=== PATIENT | male | born 1930 | race Caucasian/White ===

== ENCOUNTER 2017-04-22 04:44 | Inpatient (IN) | payer MEDICARE, OTHER, MEDICAID ==
[2017-04-22] MEDS: SOD CHLORIDE 0.9% 1,000 ML IV ×2 (06:30→10:11)
[2017-04-22 08:17] LABS: ADD MAN DIFF? NO
[2017-04-22 08:19] LABS: BASOPHIL # 0.1 10^3/ul (0.0-0.1); BASOPHILS % 0.5 % (0.0-2.0); EOSINOPHILS # 0.1 10^3/ul (0.0-0.5); EOSINOPHILS % 0.7 % (0.0-7.0); HEMATOCRIT 23.9 % (42.0-52.0); HEMOGLOBIN 7.7 g/dl (14.0-18.0); LYMPHOCYTES # 1.3 10^3/ul (0.8-2.9); LYMPHOCYTES % 11.4 % (15.0-51.0); MEAN CORPUSCULAR HEMOGLOBIN 26.6 pg (29.0-33.0); MEAN CORPUSCULAR HGB CONC 32.2 g/dl (32.0-37.0); MEAN CORPUSCULAR VOLUME 82.7 fl (82.0-101.0); MEAN PLATELET VOLUME 10.1 fl (7.4-10.4); MONOCYTE # 0.7 10^3/ul (0.3-0.9); MONOCYTES % 6.2 % (0.0-11.0); NEUTROPHIL # 9.4 10^3/ul (1.6-7.5); NEUTROPHILS % 80.5 % (39.0-77.0); PLATELET COUNT 281 10^3/UL (140-415); RED BLOOD COUNT 2.89 10^6/ul (4.70-6.10); RED CELL DISTRIBUTION WIDTH 16.2 % (11.5-14.5)
[2017-04-22 08:19] LABS: WHITE BLOOD COUNT 11.7 10^3/ul (4.8-10.8)
[2017-04-22 08:48] LABS: INR 5.07; PROTIME 48.7 Sec (11.9-14.9); PT RATIO 3.8
[2017-04-22 08:49] LABS: PARTIAL THROMBOPLASTIN TIME 60.4 Sec (25.0-35.0)
[2017-04-22 08:52] LABS: ALANINE AMINOTRANSFERASE 28 IU/L (13-69); ALBUMIN 2.2 g/dl (3.3-4.9); ALBUMIN/GLOBULIN RATIO 0.88; ALKALINE PHOSPHATASE 89 IU/L (42-121); ANION GAP 14 (8-16); ASPARTATE AMINO TRANSFERASE 23 IU/L (15-46); BLOOD UREA NITROGEN 63 mg/dl (7-20); CALCIUM 7.1 mg/dl (8.4-10.2); CARBON DIOXIDE 28 mmol/L (21-31); CHLORIDE 106 mmol/L (97-110); CREATININE 2.51 mg/dl (0.61-1.24); GLUCOSE 111 mg/dl (70-220); POTASSIUM 3.5 mmol/L (3.5-5.1); SODIUM 144 mmol/L (135-144); TOTAL PROTEIN 4.7 g/dl (6.1-8.1)
[2017-04-22 09:01] LABS: TROPONIN-I 0.035 ng/ml (0.00-0.12)
[2017-04-22] MEDS: LIDOCAINE 1% (MPF) 5 ML VIAL SC (09:30)
[2017-04-22] MEDS ORDERED: ONDANSETRON 4 MG INJ IV ×2 (10:30→11:30)
[2017-04-22] MEDS ORDERED: ACETAMINOPHEN 325 MG TAB PO ×2 (10:30→11:30)
[2017-04-22] MEDS: SOD CHLORIDE 0.9% 500 ML IV (11:20)
[2017-04-22] MEDS ORDERED: VANCOMYCIN IV PER PHARMACY XX (11:30)
[2017-04-22] MEDS ORDERED: DOCUSATE SODIUM 100 MG CAP PO (11:30)
[2017-04-22] MEDS ORDERED: MAGNESIUM HYDROXIDE 30ML CUP PO (11:30)
[2017-04-22] MEDS ORDERED: NITROGLYCERIN (SL) 0.4 MG TAB SL (11:30)
[2017-04-22] MEDS ORDERED: NACL 0.9% 3 ML SYG IV (11:30)
[2017-04-22] MEDS ORDERED: LORAZEPAM 2 MG INJ IV (11:30)
[2017-04-22] MEDS ORDERED: morphine 2 MG INJ IV (11:30)
[2017-04-22] MEDS ORDERED: NA PHOSPHATE/BIPHOS 133 ML ENEMA PR (11:30)
[2017-04-22] MEDS ORDERED: PIPER-TAZO 3.375 GM IV (PMX) 50 ML IVPB (12:00)
[2017-04-22] MEDS ORDERED: morphine LIQ (10 MG/5 ML) CUP PO (12:00)
[2017-04-22 12:39] LABS: ADD UMIC YES; UR ASCORBIC ACID NEGATIVE (NEGATIVE); UR BILIRUBIN (Dip) NEGATIVE (NEGATIVE); UR BLOOD (Dip) 1+ mg/dL (NEGATIVE); UR CLARITY CLOUDY (CLEAR); UR COLOR YELLOW (YELLOW); UR GLUCOSE (Dip) 1+ mg/dL (NEGATIVE); UR KETONES (Dip) NEGATIVE (NEGATIVE); UR LEUKOCYTE ESTERASE (Dip) NEGATIVE Leu/ul (NEGATIVE); UR NITRITE (Dip) NEGATIVE (NEGATIVE); UR RBC 14 /HPF (0-5); UR SPECIFIC GRAVITY (Dip) 1.016 (1.003-1.030); UR TOTAL PROTEIN (Dip) 3+ mg/dl (NEGATIVE); UR UROBILINOGEN (Dip) NEGATIVE (NEGATIVE); UR WBC 4 /HPF (0-5)
[2017-04-22] MEDS: FUROSEMIDE 40 MG INJ IV (13:56)
[2017-04-22] MEDS ORDERED: HYDROmorphONE 1 MG/ML SYG IV (14:30)
[2017-04-22] MEDS: PHYTONADIONE 10 MG in DEXTROSE 5% 50 ML IVPB ×2 (15:18→22:06)
[2017-04-22] MEDS: CIPROFLOXACIN 400MG/D5W 200 ML IVPB (15:53)
[2017-04-22 16:01] LABS: HEMATOCRIT 25.6 % (42.0-52.0); HEMOGLOBIN 8.4 g/dl (14.0-18.0)
[2017-04-22 16:39] LABS: FREE T4 (FREE THYROXINE) 1.45 ng/dl (0.85-1.93)
[2017-04-22] MEDS ORDERED: VANCOMYCIN 1.5 GM in DEXTROSE 5% 500 ML IVPB (17:00)
[2017-04-22] MEDS ORDERED: VANCOMYCIN 1 GM in SODIUM CHLORIDE 0.45 % 250 ML IVPB (17:00)
[2017-04-22] MEDS: BISACODYL (EC) 5 MG TAB PO (17:12)
[2017-04-22] MEDS: SOD CHLORIDE 0.9% 250 ML IV* (18:07)
[2017-04-22] MEDS: AZTREONAM 1 GM/NS (PMX) 50 ML IVPB ×2 (18:12→22:05)
[2017-04-22] MEDS ORDERED: POLYETHYLENE GLYCOL 3350 119 GM POWDER PO (18:30)
[2017-04-22] MEDS: VANCOMYCIN 1 GM (PMX) 250 ML IVPB (18:35)
[2017-04-22] MEDS: SOD CHLORIDE 0.45% 1,000 ML IV (18:36)
[2017-04-22] MEDS: MAGNESIUM CITRATE 300 ML BTL PO (18:37)
[2017-04-22] MEDS ORDERED: HEPARIN 5,000 UNIT/0.5 ML VIAL SC (21:00)
[2017-04-22 21:52] LABS: SODIUM,URINE RANDOM < 13 mmol/L (30-90)
[2017-04-22] MEDS: PEG/ELECTROLYTES 4L BTL PO (22:06)
[2017-04-22] MEDS: VANCOMYCIN 1 GM in SOD CHLORIDE 0.9% 250 ML IVPB (22:06)
[2017-04-22] MEDS: POTASSIUM CHLORIDE 20 MEQ POWDER FOR ORAL SOLN NGT (22:07)
[2017-04-22 23:43] LABS: IMMEDIATE SPIN CROSSMATCH 1 5
[2017-04-23] MEDS: SOD CHLORIDE 0.45% 1,000 ML IV ×2 (01:09→14:04)
[2017-04-23] MEDS ORDERED: FUROSEMIDE 20 MG INJ (02:29)
[2017-04-23] MEDS: FUROSEMIDE 20 MG INJ IV (03:27)
[2017-04-23 05:53] LABS: ADD MAN DIFF? NO
[2017-04-23] MEDS: PANTOPRAZOLE (EC) 40 MG TAB PO ×2 (05:58→17:16)
[2017-04-23] MEDS ORDERED: POLYETHYLENE GLYCOL 3350 119 GM POWDER PO (06:00)
[2017-04-23 06:01] LABS: ABNORMAL IP MESSAGE 1; BASOPHILS % 0.3 % (0.0-2.0); EOSINOPHILS # 0.1 10^3/ul (0.0-0.5); LYMPHOCYTES % 16.1 % (15.0-51.0); MEAN CORPUSCULAR HEMOGLOBIN 27.9 pg (29.0-33.0); MEAN CORPUSCULAR HGB CONC 33.7 g/dl (32.0-37.0); MEAN PLATELET VOLUME 10.2 fl (7.4-10.4); MONOCYTE # 0.7 10^3/ul (0.3-0.9); MONOCYTES % 12.3 % (0.0-11.0); NEUTROPHIL # 4.1 10^3/ul (1.6-7.5); NEUTROPHILS % 68.6 % (39.0-77.0); PLATELET COUNT 161 10^3/UL (140-415); POSITIVE DIFF @See below; RED BLOOD COUNT 2.29 10^6/ul (4.70-6.10); RED CELL DISTRIBUTION WIDTH 15.9 % (11.5-14.5)
[2017-04-23 06:23] LABS: HEMOGLOBIN 6.4 g/dl (14.0-18.0); INR 1.06; PROTIME 13.9 Sec (11.9-14.9); PT RATIO 1.1
[2017-04-23 06:38] LABS: ANION GAP 14 (8-16); BLOOD UREA NITROGEN 59 mg/dl (7-20); CALCIUM 6.9 mg/dl (8.4-10.2); CARBON DIOXIDE 27 mmol/L (21-31); CHLORIDE 107 mmol/L (97-110); CREATININE 2.47 mg/dl (0.61-1.24); GLUCOSE 97 mg/dl (70-220); MAGNESIUM 2.3 mg/dl (1.7-2.5); PHOSPHORUS 5.2 mg/dl (2.5-4.9); POTASSIUM 3.4 mmol/L (3.5-5.1); SODIUM 145 mmol/L (135-144)
[2017-04-23 06:56] LABS: CHOL/HDL RATIO 4.3 RATIO; HDL CHOLESTEROL 30 mg/dl (31-75); LDL CHOLESTEROL,CALCULATED 70 mg/dl; TRIGLYCERIDES 151 mg/dl (0-149)
[2017-04-23 06:56] LABS: CHOLESTEROL 130 mg/dl (100-200)
[2017-04-23] MEDS ORDERED: BISACODYL (EC) 5 MG TAB PO (08:00)
[2017-04-23 09:56] LABS: IMMEDIATE SPIN CROSSMATCH 1
[2017-04-23] MEDS: AZTREONAM 1 GM/NS (PMX) 50 ML IVPB ×2 (14:00→20:59)
[2017-04-23] MEDS: hydrALAzine 20 MG INJ IV (15:56)
[2017-04-23] MEDS ORDERED: HEPARIN (10 UNITS/ML) 5ML SYG IV (16:00)
[2017-04-23 17:19] LABS: THYROID STIMULATING HORMONE 0.815 MIU/L (0.465-4.680)
[2017-04-23 18:15] LABS: HEMATOCRIT 24.3 % (42.0-52.0); HEMOGLOBIN 8.3 g/dl (14.0-18.0)
[2017-04-24 00:51] LABS: HEMATOCRIT 21.8 % (42.0-52.0); HEMOGLOBIN 7.4 g/dl (14.0-18.0)
[2017-04-24] MEDS: SOD CHLORIDE 0.45% 1,000 ML IV (03:02)
[2017-04-24] MEDS: PANTOPRAZOLE (EC) 40 MG TAB PO ×2 (05:23→17:04)
[2017-04-24 06:55] LABS: ADD MAN DIFF? NO
[2017-04-24 06:57] LABS: BASOPHILS % 0.5 % (0.0-2.0); EOSINOPHILS # 0.4 10^3/ul (0.0-0.5); EOSINOPHILS % 6.3 % (0.0-7.0); HEMATOCRIT 23.9 % (42.0-52.0); HEMOGLOBIN 8.2 g/dl (14.0-18.0); LYMPHOCYTES # 1.3 10^3/ul (0.8-2.9); LYMPHOCYTES % 21.2 % (15.0-51.0); MEAN CORPUSCULAR HEMOGLOBIN 29.2 pg (29.0-33.0); MEAN CORPUSCULAR HGB CONC 34.3 g/dl (32.0-37.0); MEAN CORPUSCULAR VOLUME 85.1 fl (82.0-101.0); MEAN PLATELET VOLUME 10.1 fl (7.4-10.4); MONOCYTE # 0.7 10^3/ul (0.3-0.9); MONOCYTES % 11.5 % (0.0-11.0); NEUTROPHIL # 3.5 10^3/ul (1.6-7.5); NEUTROPHILS % 58.8 % (39.0-77.0); PLATELET COUNT 177 10^3/UL (140-415); RED BLOOD COUNT 2.81 10^6/ul (4.70-6.10); RED CELL DISTRIBUTION WIDTH 15.3 % (11.5-14.5)
[2017-04-24 06:57] LABS: WHITE BLOOD COUNT 5.9 10^3/ul (4.8-10.8)
[2017-04-24 07:20] LABS: ANION GAP 11 (8-16); BLOOD UREA NITROGEN 55 mg/dl (7-20); CALCIUM 6.9 mg/dl (8.4-10.2); CARBON DIOXIDE 27 mmol/L (21-31); CHLORIDE 108 mmol/L (97-110); CREATININE 2.33 mg/dl (0.61-1.24); GLUCOSE 91 mg/dl (70-220); SODIUM 143 mmol/L (135-144)
[2017-04-24 07:26] LABS: VANCOMYCIN,RANDOM 10.8 ug/ml
[2017-04-24 07:29] LABS: POTASSIUM 2.9 mmol/L (3.5-5.1)
[2017-04-24] MEDS: AZTREONAM 1 GM/NS (PMX) 50 ML IVPB (09:12)
[2017-04-24] MEDS: POTASSIUM CHLORIDE 20 MEQ POWDER FOR ORAL SOLN PO (09:12)
[2017-04-24] MEDS: hydrALAzine 20 MG INJ IV (10:29)
[2017-04-24 12:29] LABS: HEMATOCRIT 26.6 % (42.0-52.0)
[2017-04-24] MEDS: VANCOMYCIN 1.25 GM in SODIUM CHLORIDE 0.45 % 250 ML IVPB (13:55)
[2017-04-24] MEDS: AMLODIPINE 10 MG TAB PO (14:15)
[2017-04-24] MEDS: LEVOFLOXACIN 750 MG TABLET NGT (17:04)
[2017-04-24] MEDS: ATORVASTATIN 40 MG TAB PO (21:31)
[2017-04-24] MEDS: FUROSEMIDE 40 MG TAB PO (21:32)
[2017-04-24] MEDS: COLCHICINE 0.6 MG TAB PO (21:32)
[2017-04-24] MEDS: EZETIMIBE 10 MG TAB PO (21:32)
[2017-04-24] MEDS: TERAZOSIN 2 MG CAP PO (21:32)
[2017-04-25] MEDS: ALTEPLASE (CATHFLO) 2 MG INJ CATHETER (00:07)
[2017-04-25] MEDS: FLUTICASONE 0.05% 16 GM NAS SPRAY NASAL ×3 (00:07→20:56)
[2017-04-25 01:41] LABS: HEMATOCRIT 24.6 % (42.0-52.0); HEMOGLOBIN 8.2 g/dl (14.0-18.0)
[2017-04-25 02:08] LABS: TROPONIN-I 0.063 ng/ml (0.00-0.12)
[2017-04-25] MEDS ORDERED: LEVOFLOXACIN 750 MG TABLET NGT (06:00)
[2017-04-25] MEDS: PANTOPRAZOLE (EC) 40 MG TAB PO ×2 (06:01→17:17)
[2017-04-25] MEDS: FUROSEMIDE 40 MG TAB PO ×2 (06:02→17:18)
[2017-04-25] MEDS: LEVOTHYROXINE 50 MCG TAB PO (06:57)
[2017-04-25 08:20] LABS: WHITE BLOOD COUNT 6.3 10^3/ul (4.8-10.8)
[2017-04-25 08:20] LABS: ADD MAN DIFF? NO; BASOPHILS % 0.6 % (0.0-2.0); EOSINOPHILS # 0.4 10^3/ul (0.0-0.5); EOSINOPHILS % 5.9 % (0.0-7.0); HEMATOCRIT 25.3 % (42.0-52.0); HEMOGLOBIN 8.6 g/dl (14.0-18.0); LYMPHOCYTES # 1.1 10^3/ul (0.8-2.9); LYMPHOCYTES % 17.1 % (15.0-51.0); MEAN CORPUSCULAR HEMOGLOBIN 28.9 pg (29.0-33.0); MEAN CORPUSCULAR VOLUME 84.9 fl (82.0-101.0); MEAN PLATELET VOLUME 9.8 fl (7.4-10.4); MONOCYTE # 0.5 10^3/ul (0.3-0.9); MONOCYTES % 8.4 % (0.0-11.0); NEUTROPHIL # 4.2 10^3/ul (1.6-7.5); NEUTROPHILS % 66.6 % (39.0-77.0); PLATELET COUNT 192 10^3/UL (140-415); RED BLOOD COUNT 2.98 10^6/ul (4.70-6.10); RED CELL DISTRIBUTION WIDTH 15.8 % (11.5-14.5)
[2017-04-25 08:30] LABS: ANION GAP 9 (8-16); BLOOD UREA NITROGEN 51 mg/dl (7-20); CALCIUM 7.1 mg/dl (8.4-10.2); CARBON DIOXIDE 27 mmol/L (21-31); CHLORIDE 109 mmol/L (97-110); CREATININE 2.13 mg/dl (0.61-1.24); GLUCOSE 99 mg/dl (70-220); POTASSIUM 3.4 mmol/L (3.5-5.1); SODIUM 142 mmol/L (135-144)
[2017-04-25 08:37] LABS: INR 1.04; PROTIME 13.7 Sec (11.9-14.9); PT RATIO 1.1
[2017-04-25 08:40] LABS: TROPONIN-I 0.051 ng/ml (0.00-0.12)
[2017-04-25] MEDS: AMLODIPINE 10 MG TAB PO (09:00)
[2017-04-25] MEDS ORDERED: NON-FORMULARY/PATIENT OWN MED (Dexlansoprazole (Dexilant) 60 MG) PO (09:00)
[2017-04-25] MEDS: BENAZEPRIL 40 MG TAB PO (09:01)
[2017-04-25] MEDS: ISOSORBIDE MONONITRATE(SR)60 MG TAB PO (09:01)
[2017-04-25] MEDS: MEMANTINE 10 MG TAB PO (09:01)
[2017-04-25] MEDS: COLCHICINE 0.6 MG TAB PO ×3 (09:01→20:56)
[2017-04-25] MEDS: FERROUS SULFATE (EC) 325 MG TAB PO (09:01)
[2017-04-25] MEDS: CLOPIDOGREL 75 MG TAB PO (09:01)
[2017-04-25] MEDS: DUTASTERIDE 0.5 MG CAP PO (09:01)
[2017-04-25 11:53] LABS: MAGNESIUM 2.4 mg/dl (1.7-2.5)
[2017-04-25 13:44] LABS: HEMATOCRIT 26.1 % (42.0-52.0); HEMOGLOBIN 8.7 g/dl (14.0-18.0)
[2017-04-25] MEDS ORDERED: WARFARIN 5 MG TAB PO (17:00)
[2017-04-25 18:32] LABS: HEMATOCRIT 25.2 % (42.0-52.0); HEMOGLOBIN 8.4 g/dl (14.0-18.0)
[2017-04-25] MEDS: ATORVASTATIN 40 MG TAB PO (20:56)
[2017-04-25] MEDS: EZETIMIBE 10 MG TAB PO (20:56)
[2017-04-25] MEDS: TERAZOSIN 2 MG CAP PO (20:59)
[2017-04-26 00:51] LABS: HEMOGLOBIN 8.4 g/dl (14.0-18.0)
[2017-04-26] MEDS: ALBUTEROL/IPRATROPIUM (NEB) 3 ML AMP HHN (02:35)
[2017-04-26] MEDS: LORAZEPAM 0.5 MG TAB PO (02:42)
[2017-04-26] MEDS: LORAZEPAM 2 MG INJ IV (03:08)
[2017-04-26 08:54] LABS: ADD MAN DIFF? NO
[2017-04-26 08:55] LABS: BASOPHILS % 0.7 % (0.0-2.0); EOSINOPHILS # 0.4 10^3/ul (0.0-0.5); EOSINOPHILS % 5.8 % (0.0-7.0); HEMATOCRIT 23.8 % (42.0-52.0); LYMPHOCYTES # 1.3 10^3/ul (0.8-2.9); LYMPHOCYTES % 22.3 % (15.0-51.0); MEAN CORPUSCULAR HEMOGLOBIN 29.2 pg (29.0-33.0); MEAN CORPUSCULAR HGB CONC 33.6 g/dl (32.0-37.0); MEAN CORPUSCULAR VOLUME 86.9 fl (82.0-101.0); MEAN PLATELET VOLUME 9.6 fl (7.4-10.4); MONOCYTE # 0.5 10^3/ul (0.3-0.9); MONOCYTES % 8.2 % (0.0-11.0); NEUTROPHIL # 3.7 10^3/ul (1.6-7.5); NEUTROPHILS % 61.3 % (39.0-77.0); PLATELET COUNT 215 10^3/UL (140-415); RED BLOOD COUNT 2.74 10^6/ul (4.70-6.10)
[2017-04-26] MEDS: FLUTICASONE 0.05% 16 GM NAS SPRAY NASAL ×2 (09:08→20:46)
[2017-04-26] MEDS: LEVOTHYROXINE 50 MCG TAB PO (09:09)
[2017-04-26] MEDS: MEMANTINE 10 MG TAB PO (09:09)
[2017-04-26] MEDS: COLCHICINE 0.6 MG TAB PO ×3 (09:09→20:47)
[2017-04-26] MEDS: PANTOPRAZOLE (EC) 40 MG TAB PO ×2 (09:09→17:42)
[2017-04-26] MEDS: FUROSEMIDE 40 MG TAB PO ×2 (09:09→17:42)
[2017-04-26] MEDS: DUTASTERIDE 0.5 MG CAP PO (09:09)
[2017-04-26] MEDS: FERROUS SULFATE (EC) 325 MG TAB PO (09:10)
[2017-04-26] MEDS: BENAZEPRIL 40 MG TAB PO (09:10)
[2017-04-26] MEDS: ISOSORBIDE MONONITRATE(SR)60 MG TAB PO (09:10)
[2017-04-26 09:22] LABS: INR 1.08; PROTIME 14.1 Sec (11.9-14.9); PT RATIO 1.1
[2017-04-26 09:35] LABS: ANION GAP 6 (8-16); BLOOD UREA NITROGEN 47 mg/dl (7-20); CALCIUM 7.3 mg/dl (8.4-10.2); CARBON DIOXIDE 30 mmol/L (21-31); CHLORIDE 109 mmol/L (97-110); CREATININE 2.12 mg/dl (0.61-1.24); GLUCOSE 109 mg/dl (70-220); POTASSIUM 3.4 mmol/L (3.5-5.1); SODIUM 142 mmol/L (135-144)
[2017-04-26 14:42] LABS: HEMATOCRIT 24.3 % (42.0-52.0); HEMOGLOBIN 7.9 g/dl (14.0-18.0)
[2017-04-26] MEDS: LEVOFLOXACIN 750 MG TABLET NGT (17:45)
[2017-04-26] MEDS: ATORVASTATIN 40 MG TAB PO (20:47)
[2017-04-26] MEDS: EZETIMIBE 10 MG TAB PO (20:47)
[2017-04-26] MEDS: TERAZOSIN 2 MG CAP PO (20:48)
[2017-04-27] MEDS: PANTOPRAZOLE (EC) 40 MG TAB PO ×2 (06:17→17:54)
[2017-04-27] MEDS: FUROSEMIDE 40 MG TAB PO ×2 (06:18→17:54)
[2017-04-27] MEDS: LEVOTHYROXINE 50 MCG TAB PO (06:24)
[2017-04-27] MEDS: FLUTICASONE 0.05% 16 GM NAS SPRAY NASAL ×2 (08:08→21:38)
[2017-04-27] MEDS: COLCHICINE 0.6 MG TAB PO ×3 (08:09→21:37)
[2017-04-27] MEDS: DUTASTERIDE 0.5 MG CAP PO (08:09)
[2017-04-27] MEDS: MEMANTINE 10 MG TAB PO (08:09)
[2017-04-27] MEDS: FERROUS SULFATE (EC) 325 MG TAB PO (08:10)
[2017-04-27] MEDS: ISOSORBIDE MONONITRATE(SR)60 MG TAB PO (08:12)
[2017-04-27] MEDS: BENAZEPRIL 40 MG TAB PO (08:13)
[2017-04-27 09:11] LABS: ADD MAN DIFF? NO; BASOPHIL # 0.1 10^3/ul (0.0-0.1); BASOPHILS % 0.9 % (0.0-2.0); EOSINOPHILS # 0.5 10^3/ul (0.0-0.5); EOSINOPHILS % 6.4 % (0.0-7.0); HEMATOCRIT 25.7 % (42.0-52.0); HEMOGLOBIN 8.7 g/dl (14.0-18.0); LYMPHOCYTES # 1.4 10^3/ul (0.8-2.9); LYMPHOCYTES % 20.2 % (15.0-51.0); MEAN CORPUSCULAR HEMOGLOBIN 29.5 pg (29.0-33.0); MEAN CORPUSCULAR HGB CONC 33.9 g/dl (32.0-37.0); MEAN CORPUSCULAR VOLUME 87.1 fl (82.0-101.0); MEAN PLATELET VOLUME 9.5 fl (7.4-10.4); MONOCYTE # 0.6 10^3/ul (0.3-0.9); NEUTROPHIL # 4.5 10^3/ul (1.6-7.5); NEUTROPHILS % 63.2 % (39.0-77.0); PLATELET COUNT 244 10^3/UL (140-415); RED BLOOD COUNT 2.95 10^6/ul (4.70-6.10); RED CELL DISTRIBUTION WIDTH 16.1 % (11.5-14.5)
[2017-04-27 09:35] LABS: ANION GAP 9 (8-16); BLOOD UREA NITROGEN 39 mg/dl (7-20); CALCIUM 7.4 mg/dl (8.4-10.2); CARBON DIOXIDE 28 mmol/L (21-31); CHLORIDE 111 mmol/L (97-110); CREATININE 2.07 mg/dl (0.61-1.24); GLUCOSE 98 mg/dl (70-220); POTASSIUM 3.3 mmol/L (3.5-5.1); SODIUM 145 mmol/L (135-144)
[2017-04-27] MEDS: POTASSIUM CHLORIDE (SR) 20 MEQ TAB PO (13:15)
[2017-04-27 14:01] LABS: PROSTATE SPECIFIC ANTIGEN 6.8 ng/ml (0.0-4.0)
[2017-04-27] MEDS: CALCIUM CARBONATE 750 MG CHEW TAB PO (18:28)
[2017-04-27] MEDS: EZETIMIBE 10 MG TAB PO (21:37)
[2017-04-27] MEDS: ATORVASTATIN 40 MG TAB PO (21:37)
[2017-04-28] MEDS: CALCITRIOL 0.25 MCG CAP PO (00:18)
[2017-04-28] MEDS: TERAZOSIN 2 MG CAP PO ×2 (00:18→20:59)
[2017-04-28] MEDS: ALTEPLASE (CATHFLO) 2 MG INJ CATHETER ×2 (03:38→04:54)
[2017-04-28] MEDS: FUROSEMIDE 40 MG TAB PO (05:38)
[2017-04-28] MEDS: LEVOTHYROXINE 50 MCG TAB PO (05:38)
[2017-04-28] MEDS: PANTOPRAZOLE (EC) 40 MG TAB PO ×2 (05:38→17:14)
[2017-04-28 07:40] LABS: ADD MAN DIFF? NO
[2017-04-28 07:50] LABS: BASOPHIL # 0.1 10^3/ul (0.0-0.1); BASOPHILS % 1.2 % (0.0-2.0); EOSINOPHILS # 0.5 10^3/ul (0.0-0.5); EOSINOPHILS % 7.2 % (0.0-7.0); HEMATOCRIT 25.9 % (42.0-52.0); HEMOGLOBIN 8.5 g/dl (14.0-18.0); LYMPHOCYTES # 1.4 10^3/ul (0.8-2.9); LYMPHOCYTES % 19.1 % (15.0-51.0); MEAN CORPUSCULAR HGB CONC 32.8 g/dl (32.0-37.0); MEAN CORPUSCULAR VOLUME 88.4 fl (82.0-101.0); MEAN PLATELET VOLUME 9.6 fl (7.4-10.4); MONOCYTE # 0.5 10^3/ul (0.3-0.9); MONOCYTES % 6.5 % (0.0-11.0); NEUTROPHIL # 4.9 10^3/ul (1.6-7.5); NEUTROPHILS % 64.8 % (39.0-77.0); PLATELET COUNT 253 10^3/UL (140-415); RED BLOOD COUNT 2.93 10^6/ul (4.70-6.10); RED CELL DISTRIBUTION WIDTH 16.2 % (11.5-14.5)
[2017-04-28 07:50] LABS: WHITE BLOOD COUNT 7.5 10^3/ul (4.8-10.8)
[2017-04-28 08:05] LABS: ANION GAP 7 (8-16); BLOOD UREA NITROGEN 34 mg/dl (7-20); CALCIUM 7.3 mg/dl (8.4-10.2); CARBON DIOXIDE 28 mmol/L (21-31); CHLORIDE 112 mmol/L (97-110); CREATININE 2.03 mg/dl (0.61-1.24); GLUCOSE 92 mg/dl (70-220); POTASSIUM 3.3 mmol/L (3.5-5.1); SODIUM 144 mmol/L (135-144)
[2017-04-28 08:16] LABS: IRON 26 ug/dl (35-150)
[2017-04-28 08:33] LABS: % IRON SATURATION 15 % SAT (22-52); TOTAL IRON BINDING CAPACITY 168 ug/dl (241-421)
[2017-04-28] MEDS: DUTASTERIDE 0.5 MG CAP PO (08:47)
[2017-04-28] MEDS: CALCIUM CARBONATE 750 MG CHEW TAB PO ×3 (08:47→18:05)
[2017-04-28] MEDS: BENAZEPRIL 40 MG TAB PO (08:47)
[2017-04-28] MEDS: COLCHICINE 0.6 MG TAB PO ×3 (08:47→21:02)
[2017-04-28] MEDS: FERROUS SULFATE (EC) 325 MG TAB PO (08:48)
[2017-04-28] MEDS: ISOSORBIDE MONONITRATE(SR)60 MG TAB PO (08:48)
[2017-04-28] MEDS: MEMANTINE 10 MG TAB PO (08:48)
[2017-04-28] MEDS: FLUTICASONE 0.05% 16 GM NAS SPRAY NASAL ×2 (08:53→20:59)
[2017-04-28 11:41] LABS: PROSTATE SPECIFIC ANTIGEN 6.8 ng/ml (0.0-4.0)
[2017-04-28 13:29] LABS: COLLECTION PERIOD 24 hrs
[2017-04-28] MEDS: POTASSIUM CHLORIDE 20 MEQ POWDER FOR ORAL SOLN PO (17:14)
[2017-04-28] MEDS: FUROSEMIDE 20 MG INJ IV (17:15)
[2017-04-28] MEDS: LEVOFLOXACIN 750 MG TABLET NGT (17:15)
[2017-04-28 18:12] LABS: COLLECTION PERIOD 24 hrs; CREATININE CLEARANCE 17.2 mls/min (84.0-162.0); CREATININE,URINE RANDOM 106.06 mg/dl (20-370); SCRET 2.03 mg/dl (0.61-1.24); VOLUME 475 ml/24hrs; VOLUME 475 mls
[2017-04-28 18:17] LABS: 24HR URINE TOTAL PROTEIN > 600.0 mg/24hrs (42.0-225.0)
[2017-04-28] MEDS: SOD FERRIC GLUC COMPLX 125 MG in SOD CHLORIDE 0.9% 100 ML IVPB (20:59)
[2017-04-28] MEDS: EZETIMIBE 10 MG TAB PO (20:59)
[2017-04-28] MEDS: ATORVASTATIN 40 MG TAB PO (21:02)
[2017-04-29] MEDS: FUROSEMIDE 20 MG INJ IV ×5 (00:36→23:23)
[2017-04-29] MEDS: PANTOPRAZOLE (EC) 40 MG TAB PO ×2 (05:55→17:00)
[2017-04-29] MEDS: LEVOTHYROXINE 50 MCG TAB PO (05:56)
[2017-04-29 07:31] LABS: ADD MAN DIFF? NO
[2017-04-29 07:35] LABS: BASOPHIL # 0.1 10^3/ul (0.0-0.1); EOSINOPHILS # 0.6 10^3/ul (0.0-0.5); HEMATOCRIT 27.2 % (42.0-52.0); HEMOGLOBIN 8.9 g/dl (14.0-18.0); LYMPHOCYTES # 1.4 10^3/ul (0.8-2.9); LYMPHOCYTES % 15.9 % (15.0-51.0); MEAN CORPUSCULAR HEMOGLOBIN 28.9 pg (29.0-33.0); MEAN CORPUSCULAR HGB CONC 32.7 g/dl (32.0-37.0); MEAN CORPUSCULAR VOLUME 88.3 fl (82.0-101.0); MEAN PLATELET VOLUME 9.5 fl (7.4-10.4); MONOCYTE # 0.6 10^3/ul (0.3-0.9); MONOCYTES % 6.6 % (0.0-11.0); NEUTROPHIL # 6.2 10^3/ul (1.6-7.5); NEUTROPHILS % 68.9 % (39.0-77.0); PLATELET COUNT 253 10^3/UL (140-415); RED BLOOD COUNT 3.08 10^6/ul (4.70-6.10); RED CELL DISTRIBUTION WIDTH 16.5 % (11.5-14.5)
[2017-04-29 08:24] LABS: ANION GAP 6 (8-16); BLOOD UREA NITROGEN 35 mg/dl (7-20); CALCIUM 7.6 mg/dl (8.4-10.2); CARBON DIOXIDE 27 mmol/L (21-31); CHLORIDE 112 mmol/L (97-110); CREATININE 2.18 mg/dl (0.61-1.24); GLUCOSE 106 mg/dl (70-220); POTASSIUM 3.5 mmol/L (3.5-5.1); SODIUM 141 mmol/L (135-144)
[2017-04-29] MEDS: FLUTICASONE 0.05% 16 GM NAS SPRAY NASAL ×2 (09:20→21:49)
[2017-04-29] MEDS: DUTASTERIDE 0.5 MG CAP PO (09:21)
[2017-04-29] MEDS: COLCHICINE 0.6 MG TAB PO ×3 (09:21→21:49)
[2017-04-29] MEDS: ISOSORBIDE MONONITRATE(SR)60 MG TAB PO (09:21)
[2017-04-29] MEDS: BENAZEPRIL 40 MG TAB PO (09:21)
[2017-04-29] MEDS: FERROUS SULFATE (EC) 325 MG TAB PO (09:21)
[2017-04-29] MEDS: CALCIUM CARBONATE 750 MG CHEW TAB PO ×3 (09:21→17:00)
[2017-04-29] MEDS: MEMANTINE 10 MG TAB PO (09:22)
[2017-04-29] MEDS: ATORVASTATIN 40 MG TAB PO (21:47)
[2017-04-29] MEDS: EZETIMIBE 10 MG TAB PO (21:47)
[2017-04-29] MEDS: SOD FERRIC GLUC COMPLX 125 MG in SOD CHLORIDE 0.9% 100 ML IVPB (21:47)
[2017-04-29] MEDS: TAMSULOSIN (SR) 0.4 MG CAP PO (21:48)
[2017-04-29] MEDS: TERAZOSIN 2 MG CAP PO (21:49)
[2017-04-29] MEDS: LORAZEPAM 2 MG INJ IV (23:23)
[2017-04-30] MEDS: FUROSEMIDE 20 MG INJ IV ×4 (06:29→23:31)
[2017-04-30] MEDS: PANTOPRAZOLE (EC) 40 MG TAB PO ×2 (06:30→17:15)
[2017-04-30] MEDS: LEVOTHYROXINE 50 MCG TAB PO (06:30)
[2017-04-30 08:01] LABS: ANION GAP 4 (8-16); BLOOD UREA NITROGEN 32 mg/dl (7-20); CALCIUM 7.5 mg/dl (8.4-10.2); CARBON DIOXIDE 28 mmol/L (21-31); CHLORIDE 112 mmol/L (97-110); CREATININE 2.43 mg/dl (0.61-1.24); GLUCOSE 111 mg/dl (70-220); MAGNESIUM 2.1 mg/dl (1.7-2.5); PHOSPHORUS 3.9 mg/dl (2.5-4.9); POTASSIUM 3.4 mmol/L (3.5-5.1); SODIUM 141 mmol/L (135-144)
[2017-04-30] MEDS: FERROUS SULFATE (EC) 325 MG TAB PO (09:46)
[2017-04-30] MEDS: BENAZEPRIL 40 MG TAB PO (09:46)
[2017-04-30] MEDS: DUTASTERIDE 0.5 MG CAP PO (09:46)
[2017-04-30] MEDS: COLCHICINE 0.6 MG TAB PO ×3 (09:46→21:48)
[2017-04-30] MEDS: CALCIUM CARBONATE 750 MG CHEW TAB PO ×3 (09:46→17:15)
[2017-04-30] MEDS: FLUTICASONE 0.05% 16 GM NAS SPRAY NASAL ×2 (09:46→21:54)
[2017-04-30] MEDS: ASPIRIN 81 MG TAB PO (09:46)
[2017-04-30] MEDS: MEMANTINE 10 MG TAB PO (09:46)
[2017-04-30] MEDS: ISOSORBIDE MONONITRATE(SR)60 MG TAB PO (09:46)
[2017-04-30] MEDS: POTASSIUM CHLORIDE (SR) 20 MEQ TAB PO (14:12)
[2017-04-30] MEDS: TAMSULOSIN (SR) 0.4 MG CAP PO (21:48)
[2017-04-30] MEDS: SOD FERRIC GLUC COMPLX 125 MG in SOD CHLORIDE 0.9% 100 ML IVPB (21:48)
[2017-04-30] MEDS: ATORVASTATIN 40 MG TAB PO (21:48)
[2017-04-30] MEDS: EZETIMIBE 10 MG TAB PO (21:48)
[2017-04-30] MEDS: TERAZOSIN 2 MG CAP PO (21:54)
[2017-05-01] MEDS: PANTOPRAZOLE (EC) 40 MG TAB PO ×2 (06:33→18:24)
[2017-05-01] MEDS: LEVOTHYROXINE 50 MCG TAB PO (06:33)
[2017-05-01] MEDS: FUROSEMIDE 20 MG INJ IV ×3 (06:37→18:25)
[2017-05-01] MEDS: ASPIRIN 81 MG TAB PO (08:55)
[2017-05-01] MEDS: COLCHICINE 0.6 MG TAB PO ×3 (08:56→21:03)
[2017-05-01] MEDS: FLUTICASONE 0.05% 16 GM NAS SPRAY NASAL ×2 (08:56→21:16)
[2017-05-01] MEDS: MEMANTINE 10 MG TAB PO (08:57)
[2017-05-01] MEDS: FERROUS SULFATE (EC) 325 MG TAB PO (08:57)
[2017-05-01] MEDS: DUTASTERIDE 0.5 MG CAP PO (08:57)
[2017-05-01] MEDS: CALCIUM CARBONATE 750 MG CHEW TAB PO ×3 (08:58→18:28)
[2017-05-01] MEDS: BENAZEPRIL 40 MG TAB PO (09:00)
[2017-05-01] MEDS: ISOSORBIDE MONONITRATE(SR)60 MG TAB PO (09:00)
[2017-05-01 09:23] LABS: ANION GAP 7 (8-16); BLOOD UREA NITROGEN 31 mg/dl (7-20); CALCIUM 7.6 mg/dl (8.4-10.2); CARBON DIOXIDE 29 mmol/L (21-31); CHLORIDE 111 mmol/L (97-110); CREATININE 2.34 mg/dl (0.61-1.24); GLUCOSE 107 mg/dl (70-220); MAGNESIUM 1.9 mg/dl (1.7-2.5); PHOSPHORUS 3.7 mg/dl (2.5-4.9); POTASSIUM 3.2 mmol/L (3.5-5.1); SODIUM 144 mmol/L (135-144)
[2017-05-01] MEDS: POTASSIUM CHLORIDE 20 MEQ POWDER FOR ORAL SOLN PO (11:10)
[2017-05-01] MEDS: ALBUMIN HUMAN 25% 100 ML IV ×2 (12:37→18:25)
[2017-05-01] MEDS: EZETIMIBE 10 MG TAB PO (21:03)
[2017-05-01] MEDS: ATORVASTATIN 40 MG TAB PO (21:04)
[2017-05-01] MEDS: TAMSULOSIN (SR) 0.4 MG CAP PO (21:10)
[2017-05-01] MEDS: TERAZOSIN 2 MG CAP PO (21:10)
[2017-05-01] MEDS: HEPARIN 5,000 UNIT/0.5 ML VIAL SC (21:13)
[2017-05-01] MEDS: METOLAZONE 5 MG TAB PO (21:20)
[2017-05-02] MEDS: FUROSEMIDE 20 MG INJ IV ×3 (01:47→12:36)
[2017-05-02] MEDS: PANTOPRAZOLE (EC) 40 MG TAB PO ×2 (06:45→17:14)
[2017-05-02] MEDS: LEVOTHYROXINE 50 MCG TAB PO (06:46)
[2017-05-02] MEDS: FLUTICASONE 0.05% 16 GM NAS SPRAY NASAL ×2 (09:27→21:40)
[2017-05-02] MEDS: CALCIUM CARBONATE 750 MG CHEW TAB PO ×4 (09:28→21:30)
[2017-05-02] MEDS: DUTASTERIDE 0.5 MG CAP PO (09:28)
[2017-05-02] MEDS: COLCHICINE 0.6 MG TAB PO ×3 (09:28→21:30)
[2017-05-02] MEDS: ISOSORBIDE MONONITRATE(SR)60 MG TAB PO (09:28)
[2017-05-02] MEDS: FERROUS SULFATE (EC) 325 MG TAB PO (09:28)
[2017-05-02] MEDS: MEMANTINE 10 MG TAB PO (09:29)
[2017-05-02] MEDS: ASPIRIN 81 MG TAB PO (09:29)
[2017-05-02] MEDS: BENAZEPRIL 40 MG TAB PO (09:29)
[2017-05-02] MEDS: METOLAZONE 5 MG TAB PO (09:29)
[2017-05-02] MEDS: HEPARIN 5,000 UNIT/0.5 ML VIAL SC ×2 (09:30→21:33)
[2017-05-02 09:41] LABS: ANION GAP 9 (8-16); BLOOD UREA NITROGEN 29 mg/dl (7-20); CALCIUM 8.1 mg/dl (8.4-10.2); CARBON DIOXIDE 28 mmol/L (21-31); CHLORIDE 110 mmol/L (97-110); GLUCOSE 96 mg/dl (70-220); MAGNESIUM 1.9 mg/dl (1.7-2.5); POTASSIUM 3.2 mmol/L (3.5-5.1); SODIUM 144 mmol/L (135-144)
[2017-05-02] MEDS: POTASSIUM CHLORIDE (SR) 20 MEQ TAB PO (10:00)
[2017-05-02] MEDS: FUROSEMIDE 40 MG INJ IV (17:15)
[2017-05-02] MEDS ORDERED: FUROSEMIDE 20 MG INJ IV (18:00)
[2017-05-02] MEDS: ATORVASTATIN 40 MG TAB PO (21:30)
[2017-05-02] MEDS: TERAZOSIN 2 MG CAP PO (21:31)
[2017-05-02] MEDS: TAMSULOSIN (SR) 0.4 MG CAP PO (21:40)
[2017-05-02] MEDS: EZETIMIBE 10 MG TAB PO (21:40)
[2017-05-03] MEDS: FUROSEMIDE 40 MG INJ IV ×5 (00:01→23:37)
[2017-05-03] MEDS: LEVOTHYROXINE 50 MCG TAB PO (06:22)
[2017-05-03] MEDS: PANTOPRAZOLE (EC) 40 MG TAB PO ×2 (06:22→18:18)
[2017-05-03 08:34] LABS: BLOOD UREA NITROGEN 29 mg/dl (7-20); CALCIUM 7.8 mg/dl (8.4-10.2); CARBON DIOXIDE 29 mmol/L (21-31); CHLORIDE 109 mmol/L (97-110); GLUCOSE 92 mg/dl (70-220); SODIUM 143 mmol/L (135-144)
[2017-05-03 08:41] LABS: ANION GAP 8 (8-16); POTASSIUM 2.8 mmol/L (3.5-5.1)
[2017-05-03] MEDS: BENAZEPRIL 40 MG TAB PO (08:51)
[2017-05-03] MEDS: METOLAZONE 5 MG TAB PO (08:51)
[2017-05-03] MEDS: FERROUS SULFATE (EC) 325 MG TAB PO (08:51)
[2017-05-03] MEDS: FLUTICASONE 0.05% 16 GM NAS SPRAY NASAL ×2 (08:51→21:25)
[2017-05-03] MEDS: COLCHICINE 0.6 MG TAB PO ×3 (08:52→21:24)
[2017-05-03] MEDS: MEMANTINE 10 MG TAB PO (08:52)
[2017-05-03] MEDS: DUTASTERIDE 0.5 MG CAP PO (08:52)
[2017-05-03] MEDS: ASPIRIN 81 MG TAB PO (08:52)
[2017-05-03] MEDS: ISOSORBIDE MONONITRATE(SR)60 MG TAB PO (08:52)
[2017-05-03] MEDS: HEPARIN 5,000 UNIT/0.5 ML VIAL SC ×2 (08:59→21:28)
[2017-05-03] MEDS: POTASSIUM CHLORIDE 50 ML IVPB ×2 (11:02→13:19)
[2017-05-03] MEDS: POTASSIUM CHLORIDE 20 MEQ POWDER FOR ORAL SOLN PO (11:02)
[2017-05-03] MEDS: CALCIUM CARBONATE 750 MG CHEW TAB PO ×2 (13:19→18:24)
[2017-05-03] MEDS: HYDROCODONE/APAP (5/325) TAB PO (15:34)
[2017-05-03 16:34] LABS: ANION GAP 11 (8-16); BLOOD UREA NITROGEN 28 mg/dl (7-20); CALCIUM 7.4 mg/dl (8.4-10.2); CARBON DIOXIDE 28 mmol/L (21-31); CHLORIDE 109 mmol/L (97-110); CREATININE 2.34 mg/dl (0.61-1.24); GLUCOSE 122 mg/dl (70-220); MAGNESIUM 1.8 mg/dl (1.7-2.5); POTASSIUM 3.6 mmol/L (3.5-5.1); SODIUM 144 mmol/L (135-144)
[2017-05-03] MEDS: EZETIMIBE 10 MG TAB PO (21:24)
[2017-05-03] MEDS: TAMSULOSIN (SR) 0.4 MG CAP PO (21:24)
[2017-05-03] MEDS: ATORVASTATIN 40 MG TAB PO (21:24)
[2017-05-03] MEDS: TERAZOSIN 2 MG CAP PO (21:25)
[2017-05-04] MEDS: LEVOTHYROXINE 50 MCG TAB PO (05:55)
[2017-05-04] MEDS: FUROSEMIDE 40 MG INJ IV ×2 (05:55→12:48)
[2017-05-04] MEDS: PANTOPRAZOLE (EC) 40 MG TAB PO ×2 (05:55→17:14)
[2017-05-04 06:06] LABS: ANION GAP 8 (8-16); BLOOD UREA NITROGEN 29 mg/dl (7-20); CALCIUM 7.7 mg/dl (8.4-10.2); CARBON DIOXIDE 29 mmol/L (21-31); CHLORIDE 109 mmol/L (97-110); CREATININE 2.58 mg/dl (0.61-1.24); GLUCOSE 94 mg/dl (70-220); MAGNESIUM 1.8 mg/dl (1.7-2.5); SODIUM 143 mmol/L (135-144)
[2017-05-04] MEDS: POTASSIUM CHLORIDE (SR) 20 MEQ TAB PO (06:46)
[2017-05-04] MEDS: ASPIRIN 81 MG TAB PO (09:28)
[2017-05-04] MEDS: DUTASTERIDE 0.5 MG CAP PO (09:28)
[2017-05-04] MEDS: BENAZEPRIL 40 MG TAB PO (09:28)
[2017-05-04] MEDS: CALCIUM CARBONATE 750 MG CHEW TAB PO ×3 (09:28→18:55)
[2017-05-04] MEDS: FERROUS SULFATE (EC) 325 MG TAB PO (09:28)
[2017-05-04] MEDS: MEMANTINE 10 MG TAB PO (09:29)
[2017-05-04] MEDS: COLCHICINE 0.6 MG TAB PO ×3 (09:29→21:27)
[2017-05-04] MEDS: HEPARIN 5,000 UNIT/0.5 ML VIAL SC ×2 (09:32→21:42)
[2017-05-04] MEDS: FLUTICASONE 0.05% 16 GM NAS SPRAY NASAL ×2 (12:43→21:26)
[2017-05-04] MEDS: METOLAZONE 5 MG TAB PO (12:45)
[2017-05-04] MEDS: ISOSORBIDE MONONITRATE(SR)60 MG TAB PO (12:46)
[2017-05-04] MEDS: MAGNESIUM SULFATE 1 GM/D5W 100 ML IVPB (15:48)
[2017-05-04] MEDS: LIDOCAINE 1% (MPF) 5 ML VIAL SC (16:58)
[2017-05-04] MEDS: POTASSIUM CHLORIDE 20 MEQ POWDER FOR ORAL SOLN PO (17:14)
[2017-05-04] MEDS: BUMETANIDE 1 MG TAB PO (17:14)
[2017-05-04] MEDS: TERAZOSIN 2 MG CAP PO (21:00)
[2017-05-04] MEDS: ATORVASTATIN 40 MG TAB PO (21:27)
[2017-05-04] MEDS: TAMSULOSIN (SR) 0.4 MG CAP PO (21:27)
[2017-05-04] MEDS: EZETIMIBE 10 MG TAB PO (21:27)
[2017-05-05 05:25] LABS: Allen Test ACCEPTAB; Arterial Base Excess 5.3 mmol/L (-3.0-3); Arterial COHb 0.3 % (0.0-3.0); Arterial Fraction of Oxyhgb 92.4 % (93.0-99.0); Arterial HCO3 30.6 mmol/L (22.0-26.0); Arterial MetHb 0.3 % (0.0-1.5); Arterial Total Hemglobin 8.4 g/dl (12.0-18.0); Arterial pCO2 49.6 mmhg (35-45); MODE ROOM AIR; Site Right Radial
[2017-05-05 05:38] LABS: ANION GAP 8 (8-16)
[2017-05-05 05:47] LABS: MAGNESIUM 1.9 mg/dl (1.7-2.5)
[2017-05-05 05:54] LABS: BLOOD UREA NITROGEN 29 mg/dl (7-20); CALCIUM 7.3 mg/dl (8.4-10.2); CARBON DIOXIDE 28 mmol/L (21-31); CHLORIDE 107 mmol/L (97-110); CREATININE 2.53 mg/dl (0.61-1.24); GLUCOSE 102 mg/dl (70-220); POTASSIUM 3.2 mmol/L (3.5-5.1); SODIUM 140 mmol/L (135-144)
[2017-05-05] MEDS: LEVOTHYROXINE 50 MCG TAB PO (06:21)
[2017-05-05] MEDS: BUMETANIDE 1 MG TAB PO ×2 (06:21→18:00)
[2017-05-05] MEDS: PANTOPRAZOLE (EC) 40 MG TAB PO ×2 (06:21→17:27)
[2017-05-05] MEDS: ASPIRIN 81 MG TAB PO (08:51)
[2017-05-05] MEDS: FERROUS SULFATE (EC) 325 MG TAB PO (08:51)
[2017-05-05] MEDS: FLUTICASONE 0.05% 16 GM NAS SPRAY NASAL ×2 (08:51→21:18)
[2017-05-05] MEDS: CALCIUM CARBONATE 750 MG CHEW TAB PO ×3 (08:51→19:40)
[2017-05-05] MEDS: METOLAZONE 5 MG TAB PO (08:52)
[2017-05-05] MEDS: MEMANTINE 10 MG TAB PO (08:52)
[2017-05-05] MEDS: COLCHICINE 0.6 MG TAB PO ×3 (08:52→21:18)
[2017-05-05] MEDS: ISOSORBIDE MONONITRATE(SR)60 MG TAB PO (08:52)
[2017-05-05] MEDS: DUTASTERIDE 0.5 MG CAP PO (08:52)
[2017-05-05] MEDS: BENAZEPRIL 40 MG TAB PO (08:53)
[2017-05-05] MEDS: HEPARIN 5,000 UNIT/0.5 ML VIAL SC ×2 (08:54→21:28)
[2017-05-05] MEDS: POTASSIUM CHLORIDE (SR) 20 MEQ TAB PO ×2 (12:32→17:27)
[2017-05-05] MEDS: BUMETANIDE 12 MG in DEXTROSE 5% 72 ML IV (12:32)
[2017-05-05] MEDS ORDERED: BUMETANIDE 12 MG in DEXTROSE 5% 72 ML IV (21:00)
[2017-05-05] MEDS: TERAZOSIN 2 MG CAP PO (21:00)
[2017-05-05] MEDS: ATORVASTATIN 40 MG TAB PO (21:18)
[2017-05-05] MEDS: TAMSULOSIN (SR) 0.4 MG CAP PO (21:18)
[2017-05-05] MEDS: EZETIMIBE 10 MG TAB PO (21:19)
[2017-05-06] MEDS: PANTOPRAZOLE (EC) 40 MG TAB PO ×2 (05:43→17:54)
[2017-05-06 06:23] LABS: ANION GAP 9 (8-16); BLOOD UREA NITROGEN 28 mg/dl (7-20); CALCIUM 7.9 mg/dl (8.4-10.2); CARBON DIOXIDE 28 mmol/L (21-31); CHLORIDE 108 mmol/L (97-110); CREATININE 2.71 mg/dl (0.61-1.24); GLUCOSE 88 mg/dl (70-220); MAGNESIUM 1.9 mg/dl (1.7-2.5); POTASSIUM 3.3 mmol/L (3.5-5.1); SODIUM 142 mmol/L (135-144)
[2017-05-06] MEDS: LEVOTHYROXINE 50 MCG TAB PO (06:31)
[2017-05-06] MEDS: FLUTICASONE 0.05% 16 GM NAS SPRAY NASAL ×2 (08:34→20:47)
[2017-05-06] MEDS: FERROUS SULFATE (EC) 325 MG TAB PO (08:35)
[2017-05-06] MEDS: CALCIUM CARBONATE 750 MG CHEW TAB PO ×3 (08:35→17:54)
[2017-05-06] MEDS: COLCHICINE 0.6 MG TAB PO ×3 (08:35→20:48)
[2017-05-06] MEDS: ASPIRIN 81 MG TAB PO (08:35)
[2017-05-06] MEDS: DUTASTERIDE 0.5 MG CAP PO (08:35)
[2017-05-06] MEDS: ISOSORBIDE MONONITRATE(SR)60 MG TAB PO (08:35)
[2017-05-06] MEDS: MEMANTINE 10 MG TAB PO (08:35)
[2017-05-06] MEDS: BENAZEPRIL 40 MG TAB PO (08:36)
[2017-05-06] MEDS: HEPARIN 5,000 UNIT/0.5 ML VIAL SC ×2 (08:39→20:50)
[2017-05-06] MEDS: POTASSIUM CHLORIDE (SR) 20 MEQ TAB PO ×3 (10:28→17:54)
[2017-05-06] MEDS: BUMETANIDE 1 MG TAB PO ×2 (14:52→20:47)
[2017-05-06] MEDS: METOLAZONE 2.5 MG TAB PO (14:52)
[2017-05-06] MEDS ORDERED: BUMETANIDE 1 MG TAB PO (18:00)
[2017-05-06] MEDS: TAMSULOSIN (SR) 0.4 MG CAP PO (20:47)
[2017-05-06] MEDS: TERAZOSIN 2 MG CAP PO (20:47)
[2017-05-06] MEDS: EZETIMIBE 10 MG TAB PO (20:48)
[2017-05-06] MEDS: ATORVASTATIN 40 MG TAB PO (20:48)
[2017-05-07] MEDS: LEVOTHYROXINE 50 MCG TAB PO (06:14)
[2017-05-07] MEDS: PANTOPRAZOLE (EC) 40 MG TAB PO ×2 (06:14→17:44)
[2017-05-07] MEDS: BUMETANIDE 1 MG TAB PO ×2 (06:14→17:44)
[2017-05-07 06:58] LABS: ANION GAP 10 (8-16); BLOOD UREA NITROGEN 27 mg/dl (7-20); CALCIUM 7.5 mg/dl (8.4-10.2); CARBON DIOXIDE 30 mmol/L (21-31); CHLORIDE 109 mmol/L (97-110); CREATININE 2.83 mg/dl (0.61-1.24); GLUCOSE 89 mg/dl (70-220); MAGNESIUM 1.9 mg/dl (1.7-2.5); POTASSIUM 3.6 mmol/L (3.5-5.1); SODIUM 145 mmol/L (135-144)
[2017-05-07] MEDS: FLUTICASONE 0.05% 16 GM NAS SPRAY NASAL ×2 (09:39→21:32)
[2017-05-07] MEDS: DUTASTERIDE 0.5 MG CAP PO (09:39)
[2017-05-07] MEDS: CALCIUM CARBONATE 750 MG CHEW TAB PO ×3 (09:39→17:45)
[2017-05-07] MEDS: COLCHICINE 0.6 MG TAB PO ×3 (09:39→21:04)
[2017-05-07] MEDS: MEMANTINE 10 MG TAB PO (09:40)
[2017-05-07] MEDS: METOLAZONE 2.5 MG TAB PO (09:40)
[2017-05-07] MEDS: FERROUS SULFATE (EC) 325 MG TAB PO (09:40)
[2017-05-07] MEDS: ISOSORBIDE MONONITRATE(SR)60 MG TAB PO (09:40)
[2017-05-07] MEDS: BENAZEPRIL 40 MG TAB PO (09:40)
[2017-05-07] MEDS: ASPIRIN 81 MG TAB PO (09:41)
[2017-05-07] MEDS: HEPARIN 5,000 UNIT/0.5 ML VIAL SC ×2 (09:45→21:09)
[2017-05-07] MEDS: POTASSIUM CHLORIDE 20 MEQ POWDER FOR ORAL SOLN PO (12:33)
[2017-05-07] MEDS: ATORVASTATIN 40 MG TAB PO (21:03)
[2017-05-07] MEDS: TERAZOSIN 2 MG CAP PO (21:03)
[2017-05-07] MEDS: TAMSULOSIN (SR) 0.4 MG CAP PO (21:03)
[2017-05-07] MEDS: EZETIMIBE 10 MG TAB PO (21:04)
[2017-05-08] MEDS: BUMETANIDE 1 MG TAB PO ×2 (06:07→17:24)
[2017-05-08] MEDS: PANTOPRAZOLE (EC) 40 MG TAB PO ×2 (06:07→17:21)
[2017-05-08] MEDS: LEVOTHYROXINE 50 MCG TAB PO (06:07)
[2017-05-08] MEDS: METOLAZONE 2.5 MG TAB PO (08:19)
[2017-05-08] MEDS: COLCHICINE 0.6 MG TAB PO (08:19)
[2017-05-08] MEDS: CALCIUM CARBONATE 750 MG CHEW TAB PO ×3 (08:19→18:32)
[2017-05-08] MEDS: BENAZEPRIL 40 MG TAB PO (08:19)
[2017-05-08] MEDS: MEMANTINE 10 MG TAB PO (08:19)
[2017-05-08] MEDS: ASPIRIN 81 MG TAB PO (08:20)
[2017-05-08] MEDS: DUTASTERIDE 0.5 MG CAP PO (08:20)
[2017-05-08] MEDS: FERROUS SULFATE (EC) 325 MG TAB PO (08:20)
[2017-05-08] MEDS: FLUTICASONE 0.05% 16 GM NAS SPRAY NASAL ×2 (08:21→21:10)
[2017-05-08] MEDS: HEPARIN 5,000 UNIT/0.5 ML VIAL SC ×2 (08:24→21:11)
[2017-05-08] MEDS: ISOSORBIDE MONONITRATE(SR)60 MG TAB PO (08:50)
[2017-05-08] MEDS: POTASSIUM CHLORIDE 20 MEQ POWDER FOR ORAL SOLN PO (10:47)
[2017-05-08 12:28] LABS: ADD MAN DIFF? NO
[2017-05-08 12:30] LABS: BASOPHIL # 0.1 10^3/ul (0.0-0.1); BASOPHILS % 1.1 % (0.0-2.0); EOSINOPHILS # 0.2 10^3/ul (0.0-0.5); EOSINOPHILS % 3.7 % (0.0-7.0); HEMATOCRIT 28.1 % (42.0-52.0); LYMPHOCYTES # 1.1 10^3/ul (0.8-2.9); LYMPHOCYTES % 17.5 % (15.0-51.0); MEAN CORPUSCULAR HEMOGLOBIN 28.8 pg (29.0-33.0); MEAN CORPUSCULAR VOLUME 89.8 fl (82.0-101.0); MEAN PLATELET VOLUME 10.5 fl (7.4-10.4); MONOCYTE # 0.5 10^3/ul (0.3-0.9); NEUTROPHIL # 4.3 10^3/ul (1.6-7.5); NEUTROPHILS % 69.2 % (39.0-77.0); PLATELET COUNT 211 10^3/UL (140-415); RED BLOOD COUNT 3.13 10^6/ul (4.70-6.10); RED CELL DISTRIBUTION WIDTH 16.8 % (11.5-14.5)
[2017-05-08 12:30] LABS: WHITE BLOOD COUNT 6.2 10^3/ul (4.8-10.8)
[2017-05-08 12:51] LABS: ANION GAP 8 (8-16); BLOOD UREA NITROGEN 26 mg/dl (7-20); CALCIUM 7.7 mg/dl (8.4-10.2); CARBON DIOXIDE 29 mmol/L (21-31); CHLORIDE 107 mmol/L (97-110); CREATININE 2.91 mg/dl (0.61-1.24); GLUCOSE 107 mg/dl (70-220); POTASSIUM 3.3 mmol/L (3.5-5.1); SODIUM 141 mmol/L (135-144)
[2017-05-08] MEDS: EZETIMIBE 10 MG TAB PO (21:10)
[2017-05-08] MEDS: TAMSULOSIN (SR) 0.4 MG CAP PO (21:10)
[2017-05-08] MEDS: ATORVASTATIN 40 MG TAB PO (21:11)
[2017-05-08] MEDS: TERAZOSIN 2 MG CAP PO (21:11)
[2017-05-09] MEDS: PANTOPRAZOLE (EC) 40 MG TAB PO (06:13)
[2017-05-09] MEDS: LEVOTHYROXINE 50 MCG TAB PO (06:13)
[2017-05-09] MEDS: BUMETANIDE 1 MG TAB PO (06:13)
[2017-05-09] MEDS: BENAZEPRIL 40 MG TAB PO (09:47)
[2017-05-09] MEDS: MEMANTINE 10 MG TAB PO (09:47)
[2017-05-09] MEDS: ASPIRIN 81 MG TAB PO (09:47)
[2017-05-09] MEDS: POTASSIUM CHLORIDE 20 MEQ POWDER FOR ORAL SOLN PO (09:47)
[2017-05-09] MEDS: ISOSORBIDE MONONITRATE(SR)60 MG TAB PO (09:48)
[2017-05-09] MEDS: DUTASTERIDE 0.5 MG CAP PO (09:48)
[2017-05-09] MEDS: METOLAZONE 2.5 MG TAB PO (09:48)
[2017-05-09] MEDS: CALCIUM CARBONATE 750 MG CHEW TAB PO ×2 (09:48→12:40)
[2017-05-09] MEDS: FERROUS SULFATE (EC) 325 MG TAB PO (09:48)
[2017-05-09] MEDS: FLUTICASONE 0.05% 16 GM NAS SPRAY NASAL (09:49)
[2017-05-09] MEDS: HEPARIN 5,000 UNIT/0.5 ML VIAL SC (09:52)
== END 2017-05-09 17:15 | disposition home health service (06) | DRG 377 ==
LOC: MS1 05-04 00:16 → E/R 04:44 → MS4 04-24 18:28 → TEL 10:12 → ICU 17:39
PROC: 0D5K8ZZ Destruction of Ascending Colon, Via Natural or Artificial Opening Endoscopic (ICD-10-PCS; principal; 2017-04-23 10:00)
PROC: 0DB78ZX Excision of Stomach, Pylorus, Via Natural or Artificial Opening Endoscopic, Diagnostic (ICD-10-PCS; 2017-04-23 10:00)
PROC: 30233N1 Transfusion of Nonautologous Red Blood Cells into Peripheral Vein, Percutaneous Approach (ICD-10-PCS; 2017-04-23 10:00)
PROC: 30233N1 Transfusion of Nonautologous Red Blood Cells into Peripheral Vein, Percutaneous Approach (ICD-10-PCS; 2017-04-23 10:15)
PROC: 30233N1 Transfusion of Nonautologous Red Blood Cells into Peripheral Vein, Percutaneous Approach (ICD-10-PCS; 2017-04-23 10:15)
PROC: 30233K1 Transfusion of Nonautologous Frozen Plasma into Peripheral Vein, Percutaneous Approach (ICD-10-PCS; 2017-04-23 10:15)
DX: K25.4 Chronic or unspecified gastric ulcer with hemorrhage (principal); J18.9 Pneumonia, unspecified organism; N17.9 Acute kidney failure, unspecified; I50.23 Acute on chronic systolic (congestive) heart failure; S22.080A Wedge compression fracture of T11-T12 vertebra, initial encounter for closed fracture; I13.0 Hypertensive heart and chronic kidney disease with heart failure and stage 1 through stage 4 chronic kidney disease, or unspecified chronic kidney disease; D68.32 Hemorrhagic disorder due to extrinsic circulating anticoagulants; D62 Acute posthemorrhagic anemia; K52.1 Toxic gastroenteritis and colitis; D64.9 Anemia, unspecified; I48.2 Chronic atrial fibrillation; I25.5 Ischemic cardiomyopathy; W06.XXXA Fall from bed, initial encounter; I25.10 Atherosclerotic heart disease of native coronary artery without angina pectoris; D12.2 Benign neoplasm of ascending colon; K29.71 Gastritis, unspecified, with bleeding; T45.515A Adverse effect of anticoagulants, initial encounter; N18.9 Chronic kidney disease, unspecified; K64.8 Other hemorrhoids; K20.9 Esophagitis, unspecified; D50.9 Iron deficiency anemia, unspecified; N50.89 Other specified disorders of the male genital organs; T50.4X5A Adverse effect of drugs affecting uric acid metabolism, initial encounter; Z79.01 Long term (current) use of anticoagulants; Y93.9 Activity, unspecified; Y92.013 Bedroom of single-family (private) house as the place of occurrence of the external cause; Y99.8 Other external cause status; Z95.0 Presence of cardiac pacemaker; Y92.230 Patient room in hospital as the place of occurrence of the external cause; N40.0 Benign prostatic hyperplasia without lower urinary tract symptoms; C61 Malignant neoplasm of prostate
CPT/HCPCS: 36415; 36430; 36569; 36600; 71045; 72100; 72170; 74176; 76775; 76937; 78278; 80048; 80053; 80061; 80202; 81001; 82040; 82575; 82803; 83036; 83540; 83735; 84100; 84153; 84154; 84155; 84156; 84300; 84439; 84443; 84484; 85014; 85018; 85025; 85610; 85730; 86850; 86900; 86901; 86920; 87040; 87075; 88305; 93005; 93306; 93970; 94640; 97110; 97116; 97163; 97530; 99285-25; J1940